=== PATIENT | male | born 1980 | race Caucasian/White ===

== ENCOUNTER → 2019-09-05 | Outpatient (CLI) | payer OTHER ==
[~2019-09-05] MED LIST: ALBUMIN HUMAN 25%, 25GM/100ML ONE; LIDOCAINE 1%, 10ML ONE
== END | disposition home or self-care (01) ==
LOC: RAD 15:02
PROVIDERS: ATTEND Internal Medicine Gastroenterology
DX: K70.11 Alcoholic hepatitis with ascites (principal)
CPT/HCPCS: 49083; J3490; P9047

== ENCOUNTER 2019-10-08 13:15 | Outpatient (CLI) | payer OTHER ==
[2019-10-08] MEDS ORDERED: LIDOCAINE 1%, 10ML ONE ×2 (13:24→14:44)
[2019-10-08] MEDS ORDERED: ALBUMIN HUMAN 25%, 25GM/100ML ONE (13:41)
== END 2019-10-08 23:59 | disposition home or self-care (01) ==
LOC: RAD 13:15
PROVIDERS: ATTEND Internal Medicine Gastroenterology
DX: K70.11 Alcoholic hepatitis with ascites (principal)
CPT/HCPCS: 49083; J3490; P9047

== ENCOUNTER 2019-10-28 13:58 | Outpatient (CLI) | payer OTHER ==
[~2019-10-28 13:58] MED LIST changes: -ALBUMIN HUMAN 25%, 25GM/100ML ONE
[2019-10-28] MEDS ORDERED: ALBUMIN HUMAN 25%, 25GM/100ML ONE (16:53)
== END 2019-10-28 23:59 | disposition home or self-care (01) ==
LOC: RAD 13:58
PROVIDERS: ATTEND Internal Medicine Gastroenterology
DX: K70.31 Alcoholic cirrhosis of liver with ascites (principal)
CPT/HCPCS: 49083; J3490; P9047

== ENCOUNTER 2020-02-02 08:49 | Outpatient (CLI) | payer OTHER | END 2020-02-02 23:59 | disposition home or self-care (01) | LOC: CFH 08:49 | PROVIDERS: ATTEND Internal Medicine Gastroenterology | DX: K70.11 Alcoholic hepatitis with ascites (principal); K70.31 Alcoholic cirrhosis of liver with ascites | CPT/HCPCS: 76700 ==

== ENCOUNTER → 2020-05-19 | Outpatient (CLI) | payer OTHER ==
[~2020-05-19] MED LIST changes: +GADOTERATE 10 MMOL/20 ML VIAL ONE; -LIDOCAINE 1%, 10ML ONE
== END | disposition home or self-care (01) ==
LOC: CFH 13:15
PROVIDERS: ATTEND Internal Medicine Gastroenterology
DX: K82.8 Other specified diseases of gallbladder (principal); N28.1 Cyst of kidney, acquired; R16.1 Splenomegaly, not elsewhere classified
CPT/HCPCS: 74183; A9575